=== PATIENT | female | born 1975 | race African-American/Black ===

== ENCOUNTER 2021-12-28 08:58 | Inpatient (IN) ==
[2021-12-28] MEDS ORDERED: Ringers Solution, Lactated 1,000 ML IVC SCH ×2 (09:30→14:30)
[2021-12-28] MEDS ORDERED: *HR* HYDROmorphone PF 0.5 MG/0.5 ML SYRINGE IVP PRN (09:43)
[2021-12-28] MEDS ORDERED: Acetaminophen IV 1,000 MG/100 ML BAG IVPB ONE (09:53)
[2021-12-28] MEDS ORDERED: Lidocaine HCL 4 ML Topical Solution (Laryng-O-Jet Kit Sterile Pak) TP ONE (10:00)
[2021-12-28] MEDS ORDERED: CeFAZolin Syr 2,000MG/20 ML 2,000 MG/20 ML SYRINGE IVPB ONE (10:00)
[2021-12-28] MEDS ORDERED: Lidocaine -MPF 2% 2 ML VIAL ONE ×2 (10:12→10:40)
[2021-12-28] MEDS ORDERED: *HR* Magnesium Sulfate 1 GM/2 ML VIAL ONE (10:13)
[2021-12-28] MEDS ORDERED: *HR* Propofol 200 MG/20 ML VIAL IVP ONE (10:38)
[2021-12-28] MEDS ORDERED: *HR* FentaNYL (PF) 100 MCG/2 ML VIAL ONE (10:38)
[2021-12-28] MEDS ORDERED: *HR* HYDROMORPHONE 2 MG/ML VIAL ONE (10:39)
[2021-12-28] MEDS ORDERED: *HR* Midazolam HCl 2 MG/2 ML VIAL ONE (10:39)
[2021-12-28] MEDS ORDERED: Ondansetron 4 MG/2 ML VIAL ONE (10:40)
[2021-12-28] MEDS ORDERED: *HR* Rocuronium Bromide 50 MG/5 ML VIAL ONE (10:40)
[2021-12-28] MEDS ORDERED: Sugammadex Sodium 200 MG/2 ML VIAL IV ONE (10:40)
[2021-12-28] MEDS ORDERED: Ketamine HCL *QUVA* 50mg (1mL) SYRINGE ONE (11:01)
[2021-12-28] MEDS ORDERED: Ketorolac 30 MG/ML VIAL ONE (11:53)
[2021-12-28] MEDS ORDERED: Scopolamine Patch 1.5 MG PATCH.TD72 ONE (11:54)
[2021-12-28] MEDS ORDERED: Scopolamine Patch 1.5 MG PATCH.TD72 TD ONE (11:55)
[2021-12-28] MEDS ORDERED: Albumin Human 5% 12.5 GM/250 ML IV.SOLN ONE (12:09)
[2021-12-28] MEDS ORDERED: Lacri-Lube 3.5 GM TUBE ONE (13:21)
[2021-12-28] MEDS ORDERED: Naloxone 0.4 MG/ML INJ IVP PRN (14:30)
[2021-12-28] MEDS ORDERED: Ondansetron 4 MG/2 ML VIAL IVP PRN (14:30)
[2021-12-28] MEDS: *HR* OxyCODONE Immed Rel 5 MG TABLET PO PRN (14:52)
[2021-12-28] MEDS ORDERED: hydrOXYzine pamoate 25 MG CAPSULE PO PRN (15:27)
[2021-12-28] MEDS: *HR* OxyCODONE/APAP 5/325 TABLET PO PRN (17:09)
[2021-12-28] MEDS ORDERED: *HR* HYDROmorphone (PF) 1 MG/ML SYRINGE IVP ONE (17:21)
[2021-12-28] MEDS: Ibuprofen 600 MG TABLET PO PRN (19:04)
[2021-12-29] MEDS: Ibuprofen 600 MG TABLET PO PRN ×2 (01:49→07:44)
[2021-12-29] MEDS: *HR* OxyCODONE/APAP 5/325 TABLET PO PRN (01:50)
[2021-12-29] MEDS: *HR* OxyCODONE Immed Rel 5 MG TABLET PO PRN (04:35)
[2021-12-29 04:37] VITALS: O2SAT 99
[2021-12-29 07:27] VITALS: BP 104/73; PULSE 84; TEMP 98.3
== END 2021-12-29 09:45 | disposition home or self-care (01) | DRG 743 ==
LOC: SAMDAY 08:58 → 1NENUPED 14:17
PROVIDERS: ADMIT Student in an Organized Health Care Education/Training Program; ATTEND Student in an Organized Health Care Education/Training Program